=== PATIENT | male | born 1980 | race Caucasian/White ===

== ENCOUNTER → 2019-12-13 | Outpatient (CLI) | payer OTHER ==
[2019-12-13 12:57] LABS: ABSOLUTE EOSINOPHILS 0.3 thou/uL (0.0-0.7); ABSOLUTE LYMPHOCYTES 1.5 thou/uL (0.8-5.3); ABSOLUTE MONOCYTES 0.4 thou/uL (0.0-1.2); ABSOLUTE NEUTROPHILS 3.4 thou/uL (1.6-8.1); BASOPHILS 0.5 %; EOSINOPHILS 4.9 %; HEMATOCRIT 44.5 % (42.0-52.0); HEMOGLOBIN 15.4 gm/dL (14.0-18.0); LYMPHOCYTES 26.9 %; MCH 30.4 pg (26.0-34.0); MCHC 34.7 g/dL (28.0-37.0); MCV 87.7 fL (80.0-100.0); MONOCYTES 7.3 %; MPV 6.8 fl. (7.2-11.1); NUCLEATED RBCS 0 /100WBC; PLATELET COUNT* 257 thou/uL (150-400); POLYS 60.4 %; RBC 5.07 mil/uL (4.50-6.00); RDW-CV 13.4 % (10.5-14.5); WBC 5.6 thou/uL (4.0-11.0)
[2019-12-13 13:10] LABS: ALBUMIN 3.3 g/dL (3.4-5.0); CALCIUM 8.9 mg/dL (8.5-10.1); POTASSIUM 3.7 mmol/L (3.5-5.1); TOTAL BILIRUBIN 0.4 mg/dL (<0.1-1.0)
== END ==
LOC: M.LAB 12:32
PROVIDERS: ATTEND Family Medicine
DX: R53.82 Chronic fatigue, unspecified (principal); Z68.41 Body mass index [BMI] 40.0-44.9, adult

== ENCOUNTER → 2020-01-03 | Outpatient (CLI) | payer OTHER ==
[2020-01-04 02:06] LABS: GLYCOHEMOGLOBIN (HGB A1C) 5.4 % (4.8-5.6)
== END ==
LOC: M.LAB 12:46
PROVIDERS: ATTEND Family Medicine
DX: R73.09 Other abnormal glucose (principal)

== ENCOUNTER → 2020-04-16 | Outpatient (CLI) | payer OTHER | LOC: M.CT 12:49 | PROVIDERS: ATTEND Family Medicine | DX: R51.9 Headache, unspecified (principal); H93.13 Tinnitus, bilateral ==

== ENCOUNTER → 2020-06-11 | Outpatient (CLI) | payer OTHER | LOC: M.ULTRA 15:00 | PROVIDERS: ATTEND Family Medicine | DX: M79.89 Other specified soft tissue disorders (principal) ==

== ENCOUNTER → 2020-07-30 | Outpatient (CLI) | payer OTHER ==
--- NOTE | 2020-08-21 11:44 | SLEEP ---
[place] [address] SLEEP STUDY REPORT Name: PJ DIAZ Room: [facility]#: [id number] Admission: 07/30/20 Attend Phys: Sofia Cisneros DO Discharge: Date of : 76 Report #: [id number] THIS REPORT FOR: cc: Sofia Cisneros Maggie M. DO Pervez, Adeel MD ~ DOC #: [id number] Rick Rogers MD DATE OF STUDY: 08/03/2020 HOME SLEEP STUDY Total duration of the study is 331 minutes. During this time, duration, we recorded multiple sleep-related respiratory events. These included a 24 obstructive apneas in addition to 2 central apneas and 14 hypopneas. Overall, apnea-hypopnea index is 7.3. Body position data indicates the patient is in the supine position for most of the sleep study and also multiple desaturations recorded despite the fact that we lost tracing from the pulse oximetry during the last 2 hours of the study and O2 saturation is still below 88% for 31 minutes and the lowest recorded O2 saturation is 74%. Mean heart rate is 75. IMPRESSION: Mild obstructive sleep apnea with an apnea-hypopnea index of 7.3. The patient is noted to be supine throughout the sleep study. There is nocturnal hypoxemia despite the fact that we do not have oximetry tracings for the last couple of hours of the sleep study. O2 saturation was still below 88% for 31 minutes. I suspect that this duration would have been longer. I agree had tracing from towards the end of the sleep study as well. RECOMMENDATIONS: Recommend considering positive airway pressure therapy while asleep. Options include the use of a CPAP auto titrated device or obtaining an in-lab sleep study for positive airway pressure titration. Due to the presence of significant nocturnal hypoxemia, I would perhaps favor obtaining an in-lab sleep study for positive airway pressure titration. Please evaluate clinically regarding whether weight loss should be recommended. Recommend avoiding driving and other activities requiring vigilance if drowsy. This entire sleep study was reviewed by board certified sleep physician. [place] [address] SLEEP STUDY REPORT Name: PJ DIAZ Room: [facility]#: [id number] Admission: 07/30/20 Attend Phys: Sofia Cisneros DO Discharge: Date of : 76 Report #: [id number] <ELECTRONICALLY SIGNED> By: Rick Rogers MD 08/21/20 [id number] Rogers MD /nt
== END ==
LOC: M.PUL 14:00
PROVIDERS: ATTEND Family Medicine
DX: G47.33 Obstructive sleep apnea (adult) (pediatric) (principal); G47.19 Other hypersomnia; R53.82 Chronic fatigue, unspecified